=== PATIENT | male | born 1995 | race Two or more races ===

== ENCOUNTER 2018-03-14 10:24 | Emergency (ER) | payer MEDICAID, OTHER ==
[~2018-03-14] VITALS: Ht 165.1 cm; Wt 72.6 kg
[2018-03-14 10:25] VITALS: BP 126/75
== END 2018-03-14 11:58 | disposition home or self-care (01) ==
LOC: ER 10:34
DX: T22.122A Burn of first degree of left elbow, initial encounter (principal); T21.12XA Burn of first degree of abdominal wall, initial encounter; X19.XXXA Contact with other heat and hot substances, initial encounter; Y93.89 Activity, other specified; Y99.8 Other external cause status; Y92.89 Other specified places as the place of occurrence of the external cause